=== PATIENT | female | born 1980 | race Caucasian/White ===

== ENCOUNTER 2020-03-17 09:11 | Emergency (ER) | payer OTHER ==
[~2020-03-17] VITALS: Ht 165.1 cm; Wt 56.7 kg
[~2020-03-17 09:11] MED LIST: LEVOTHYROXINE88 MCG; ZOFRAN ODT4 MG PO
== END 2020-03-17 09:50 | disposition home or self-care (01) ==
LOC: ED 09:11
PROC: 0XQMXZZ Repair Left Thumb, External Approach (ICD-10-PCS; principal; 2020-03-17)
DX: S61.012A Laceration without foreign body of left thumb without damage to nail, initial encounter (principal); E03.9 Hypothyroidism, unspecified; F17.200 Nicotine dependence, unspecified, uncomplicated; Z88.2 Allergy status to sulfonamides; Z79.899 Other long term (current) drug therapy; W26.0XXA Contact with knife, initial encounter
CPT/HCPCS: 12001; 99282-25; 99406

== ENCOUNTER 2021-04-01 08:16 | Emergency (ER) | payer SELFPAY ==
[~2021-04-01] VITALS: Ht 165.1 cm; Wt 72.1 kg
[~2021-04-01 08:16] MED LIST changes: +HYDROCODON-ACE1 EA10 PO; +MOTRIN IB200 MG PO
== END 2021-04-01 10:35 | disposition home or self-care (01) ==
LOC: ED 08:16
DX: S31.41XA Laceration without foreign body of vagina and vulva, initial encounter (principal); X58.XXXA Exposure to other specified factors, initial encounter; E03.9 Hypothyroidism, unspecified; Z87.891 Personal history of nicotine dependence; Z88.5 Allergy status to narcotic agent; Z79.899 Other long term (current) drug therapy
CPT/HCPCS: 99283

== ENCOUNTER 2024-10-22 12:43 | Day surgery (SDC) | payer BC ==
[~2024-10-22] VITALS: Ht 165.1 cm; Wt 71.8 kg
[~2024-10-22 12:43] MED LIST changes: +IBLOOD GLUCOSE TEST STRIP 1 EA TEST VI PRN; +LACTATED RINGER'S 1,000 ML IV SCH; +LIDOCAINE HCL 1% 5 ML SDV INJ ONE; +MIDAZOLAM HCL 5 MG/5 ML VIAL IV PRN; +fentaNYL citrate 100 MCG/2 ML VIAL IV PRN
[2024-10-22 13:01] VITALS: BP 122/67
[2024-10-22] MEDS ORDERED: LEVOTHYROXINE137 MC1 PO (13:36)
[2024-10-22] MEDS ORDERED: TRAZODONE HCL50 MG PO (13:37)
[2024-10-22] MEDS ORDERED: VITAMIN D250 MC1 PO (13:37)
[2024-10-22] MEDS ORDERED: VITAMIN D21250 MCG PO (13:38)
[2024-10-22] MEDS ORDERED: fentaNYL citrate 100 MCG/2 ML VIAL ONE (15:34)
[2024-10-22] MEDS ORDERED: MIDAZOLAM HCL 5 MG/5 ML VIAL ONE (15:35)
--- NOTE | 2024-10-22 16:34 | NUR ---
10/22/24 1634 Sheets,Anamaria 1628 PT WAKES EAISLY AND DENIES NAUSEA AND REPORTS "SOME" PAIN IN ABD. PT ENCOURAGED TO PASS GAS NEEDED. VSS.
[2024-10-22 16:48] VITALS: BP 126/82
--- NOTE | 2024-10-27 11:54 | OR ---
[facility] [address], [place] [address] Signed DATE OF OPERATION: 10/22/2024 SURGEON: Leon Vanessa MD PREOPERATIVE DIAGNOSES: 1. Diarrhea alternated with constipation and left-sided abdominal pain. 2. History of 9 mm tubular adenoma five years ago, [place]. POSTOPERATIVE DIAGNOSIS: Mild edema of colonic mucosa. No evidence of polyps or diverticulosis. PROCEDURE: Total colonoscopy to cecum with biopsy of the cecum, right colon, sigmoid and rectum. JEWEL[employer] SURGEON: Ward Vanessa MD. ANESTHESIA: Intravenous sedation; fentanyl 200 mcg and Versed 10 mg. INDICATION: This 44-year-old white woman is a patient of BAETA Barriga. She underwent colonoscopy by Dr. Gonzalez in [place] in 2018 and found to have a tubular adenoma at 80 cm which was resected. She has diarrhea alternating with constipation on a routine basis. She has had no blood per rectum. She is admitted at this time to undergo colonoscopy to better characterize the problem. FINDINGS: The prep was quite good. Complete colonoscopy was undertaken to cecum with full intubation of cecum. There was no evidence of polyps, diverticular formation, though she did have areas of the colon which were edematous suggestive of low-grade inflammation. Biopsies were taken. DESCRIPTION OF PROCEDURE: The patient was brought to the endoscopy suite and placed in the lateral decubitus position, given intravenous sedation to the point of slurred speech and nystagmus. Full cardiopulmonary monitoring was maintained. Digital rectal examination was found to be normal. An Olympus video colonoscope was passed in the rectum and manipulated throughout the Electronically Signed By: LEON VANESSA MD 10/27/24 1824 PATIENT NAME: ARELIS KELLER OPERATIVE REPORT DATE OF : 84 REPORT #: [id number] PHYSICIAN: LEON VANESSA MD PCP: CLARICE BOND PA-C REPORT IS CONFIDENTIAL AND NOT TO BE RELEASED WITHOUT AUTHORIZATION [facility] [address], [place] [address] Signed colon ultimately intubating the cecum itself. The ileocecal valve and appendiceal orifice were normal. Biopsies were taken of the cecum to assess for occult colitis. The scope was withdrawn from that point and examination throughout showed no sign of abnormality specifically no polyps or diverticula, but did show mild edematous changes with indistinct blood vessels and so on. Biopsies were obtained to assess for occult colitis as previously noted. Retroflexed view of the rectum was normal. Scope was withdrawn and removed. The patient was taken to the recovery room in good condition. CONCLUDING DIAGNOSIS: Low-grade edema. No sign of recurrent polyp. PLAN: Recommend repeat colonoscopy in 10 years, sooner if clinically indicated. We will initiate for her at a low FODMAP diet. We will see her back in 6 to 8 weeks to assess her progress. MD MONICA Hoffman/EWELINA /[id number] cc: BEATA Barriga MD Copies: ~ Electronically Signed By: LEON VANESSA MD 10/27/24 1154 PATIENT NAME: ARELIS KELLER ED OPERATIVE REPORT DATE OF : 84 REPORT #: [id number] PHYSICIAN: LEON VANESSA MD PCP: CLARICE BOND PA-C REPORT IS CONFIDENTIAL AND NOT TO BE RELEASED WITHOUT AUTHORIZATION
--- NOTE | 2024-10-27 12:47 | PATH ---
[facility] [address], [place] [address] Signed SPECIMEN(S): A CECUM COLON BIOPSY SPECIMEN(S): B ASCENDING COLON BIOPSY SPECIMEN(S): C RECTOSIGMOID BIOPSY SPECIMEN(S): D RECTUM BIOPSY SPECIMEN SOURCE: A. CECUM COLON BIOPSY B. ASCENDING COLON BIOPSY C. RECTOSIGMOID BIOPSY D. RECTUM BIOPSY CLINICAL HISTORY: Pre-: History of tubular adenoma. Post: Mild edema of colon FINAL PATHOLOGIC DIAGNOSIS: A. Cecum, biopsy: - Colonic mucosa with no significant pathologic changes B. Colon, ascending, biopsy: - Colonic mucosa with no significant pathologic changes C. Colon, rectosigmoid, biopsy: - Colonic mucosa with no significant pathologic changes D. Rectum, biopsy: - Colonic mucosa with no significant pathologic changes BRP MICROSCOPIC EXAMINATION: Histologic sections of all submitted blocks are examined by light microscopy. These findings, together with the gross examination, support the pathologic diagnosis. GROSS DESCRIPTION: A. The specimen, labeled and designated "Manas, Kena, cecum colon biopsy," is received in formalin and consists of two rankin soft tissue fragments, ranging from 0.2-0.5 cm. Entirely submitted in (A1). B. The specimen, labeled and designated "Kena Malagon, ascending colon biopsy," is received in formalin and consists of two rankin soft tissue fragments, ranging from 0.2-0.3 cm. Entirely submitted in (B1). C. The specimen, labeled and designated "Manas, A, rectosigmoid biopsy," is received in formalin and consists of two rankin soft tissue fragments, ranging from 0.2-0.3 cm. Entirely submitted in PATIENT NAME: ARELIS MALAGON PATHOLOGY DATE OF : 84 REPORT #: [id number] PHYSICIAN: [employer] CHARLIE PCP: CLARICE BOND PA-C REPORT IS CONFIDENTIAL AND NOT TO BE RELEASED WITHOUT AUTHORIZATION [facility] [address], [place] [address] Signed (C1). D. The specimen, labeled and designated "Kena Malagon, rectum biopsy," is received in formalin and consists of two rankin soft tissue fragments, ranging from 0.2-0.4 cm. Entirely submitted in (D1). AB (under the direct supervision of a pathologist) The Gross Description was prepared using a voice recognition system. The report was reviewed for accuracy; however, sound-alike word errors, addition and/or deletions may occur. If there is any question about this report, please contact Client Services. ADDITIONAL NOTES: Immunohistochemical and/or in situ hybridization studies if performed in this case included appropriate positive controls that reacted as expected. This test was developed and its performance characteristics determined by [facility]. It has not been cleared or approved by the U.S. Food and Drug Administration. The FDA has determined that such clearance or approval is not necessary. This test is used for clinical purposes. It should not be regarded as investigational or for research. [facility] is certified under the Clinical Laboratory Improvement Amendments of 1988 (CLIA) as qualified to perform high complexity clinical laboratory testing. PERFORMING LABORATORY: Technical component was performed by [facility], [address] [place] [id number] (CLIA# [id number]). Professional interpretation was performed by [facility] [address] [facility] [id number] Diagnostician: Horacio Holley MD Pathologist Electronically Signed 10/27/2024 Copies: ~ PATIENT NAME: ARELIS MALAGON PATHOLOGY DATE OF : 84 REPORT #: [id number] PHYSICIAN: LEWIS GUERRA PCP: CLARICE BOND PA-C REPORT IS CONFIDENTIAL AND NOT TO BE RELEASED WITHOUT AUTHORIZATION
== END 2024-10-22 17:06 | disposition home or self-care (01) ==
LOC: DS 12:43 → OPS 12:43 → DS 14:00 → OPS 14:00
PROVIDERS: ATTEND Surgery
PROC: 0DBP8ZX Excision of Rectum, Via Natural or Artificial Opening Endoscopic, Diagnostic (ICD-10-PCS; 2024-10-22)
PROC: 0DBF8ZX Excision of Right Large Intestine, Via Natural or Artificial Opening Endoscopic, Diagnostic (ICD-10-PCS; 2024-10-22)
PROC: 0DBH8ZX Excision of Cecum, Via Natural or Artificial Opening Endoscopic, Diagnostic (ICD-10-PCS; principal; 2024-10-22 14:00)
DX: R19.7 Diarrhea, unspecified (principal); K59.00 Constipation, unspecified; K63.89 Other specified diseases of intestine; E03.9 Hypothyroidism, unspecified; Z86.0101 Personal history of adenomatous and serrated colon polyps; Z90.710 Acquired absence of both cervix and uterus; Z83.719 Family history of colon polyps, unspecified
CPT/HCPCS: 99153; G0500; J2250; J3010; J7121

== ENCOUNTER 2025-01-16 17:31 | Emergency (ER) | payer BC ==
[~2025-01-16] VITALS: Ht 165.1 cm; Wt 62.0 kg
[~2025-01-16 17:31] MED LIST changes: -IBLOOD GLUCOSE TEST STRIP 1 EA TEST VI PRN; -LACTATED RINGER'S 1,000 ML IV SCH; +LEVOTHYROXINE137 MC1 PO; -LIDOCAINE HCL 1% 5 ML SDV INJ ONE; -MIDAZOLAM HCL 5 MG/5 ML VIAL IV PRN; +TRAZODONE HCL50 MG PO; +VITAMIN D21250 MCG PO; +VITAMIN D250 MC1 PO; -fentaNYL citrate 100 MCG/2 ML VIAL IV PRN
[2025-01-16] MEDS ORDERED: GABAPENTIN300 MG PO (17:46)
[2025-01-16] MEDS ORDERED: SODIUM CHLORIDE 0.9% 1,000 ML IV ONE ×2 (18:15→19:45)
[2025-01-16] MEDS ORDERED: ondansetron HCL 4 MG/2 ML VIAL IV ONE (18:15)
[2025-01-16 18:26] LABS: HEMATOCRIT 44.7 % (35.0-50.0); HEMOGLOBIN 15.6 g/dL (12.0-18.0); MCH 31.2 (27-36); MCHC 34.9 g/dl (30-36); MCV 89.6 fl (81-99); PLATELET COUNT 401 K/uL (140-440); RBC 4.98 M/ul (4.3-5.7); RDW 13.1 (10.5-15.0)
[2025-01-16 18:41] LABS: ALBUMIN 4.9 g/dL (3.4-5.0); ALBUMIN/GLOBULIN RATIO 1.53 (1.1-2.4); ANION GAP 16.1 (7-21); BUN/CREATININE RATIO 10.89 (6.0-28.6); CALCIUM 12.4 mg/dL (8.5-10.1); CREATININE, SERUM 1.01 mg/dL (0.55-1.02); POTASSIUM 3.1 mmol/L (3.5-5.1); PROTEIN, TOTAL 8.1 g/dL (6.4-8.2)
[2025-01-16 18:45] LABS: EOSINOPHILS, MANUAL DIFF 1; LYMPHOCYTES, MANUAL DIFF 12; MONOCYTES, MANUAL DIFF 5; NEUTROPHILS, MANUAL DIFF 82
[2025-01-16] MEDS ORDERED: KETOROLAC TROMETHAMINE 15 MG/ML VIAL IV ONE (19:00)
[2025-01-16] MEDS ORDERED: ONDANSETRON ODT8 MG PO (19:27)
[2025-01-16] MEDS ORDERED: ONDANSETRON 4 MG HOME.PACK SL ONE (19:30)
[2025-01-16] MEDS ORDERED: droPERidol 5 MG/2 ML VIAL IV ONE (20:15)
[2025-01-16] MEDS ORDERED: CALCIUM CARBONATE 500 MG CHEW PO ONE (20:45)
[2025-01-16 21:02] VITALS: BP 147/84
== END 2025-01-16 21:02 | disposition home or self-care (01) ==
LOC: ED 17:31
PROVIDERS: Emergency Medicine
DX: K52.9 Noninfective gastroenteritis and colitis, unspecified (principal); E03.9 Hypothyroidism, unspecified; Z87.891 Personal history of nicotine dependence; Z88.5 Allergy status to narcotic agent; Z79.890 Hormone replacement therapy; Z79.899 Other long term (current) drug therapy
CPT/HCPCS: 36415; 80053; 84703; 85025; 96361; 96374; 96375; 99284-25; A9270; J1790; J1885; J2405; J7030